=== PATIENT | male | born 1970 | race Caucasian/White ===

== ENCOUNTER 2021-12-22 12:54 | Outpatient (RCR) | payer SELFPAY | END 2022-01-16 | disposition home or self-care (01) | LOC: OT | DX: S52.562A Barton's fracture of left radius, initial encounter for closed fracture (principal); X58.XXXA Exposure to other specified factors, initial encounter ==

== ENCOUNTER 2022-01-18 07:58 | Outpatient (RCR) | payer SELFPAY | END 2022-02-16 | disposition still patient (30) | LOC: OT | DX: S52.562D Barton's fracture of left radius, subsequent encounter for closed fracture with routine healing (principal); X58.XXXD Exposure to other specified factors, subsequent encounter ==